=== PATIENT | female | born 1985 | race Caucasian/White ===

== ENCOUNTER 2016-08-17 21:10 | Emergency (ER) | payer OTHER ==
[2016-08-17 22:10] LABS: HEMOGLOBIN 14.7 gm/dl (12.3-15.3); RED BLOOD COUNT 4.97 M/UL (4.00-5.10); WHITE BLOOD COUNT 11.9 K/UL (4.5-11.0)
[2016-08-17 22:31] LABS: BUN/CREATININE RATIO 13 (0-10)
== END 2016-08-18 02:45 | disposition home or self-care (01) ==
LOC: ER1 21:10
PROVIDERS: Emergency Medicine
DX: R07.89 Other chest pain (principal); F11.23 Opioid dependence with withdrawal; N39.0 Urinary tract infection, site not specified; F17.210 Nicotine dependence, cigarettes, uncomplicated
CPT/HCPCS: 36415; 71020; 80053; 81001; 82550; 82553; 83605; 83690; 83874; 84484; 84703; 85025; 85379; 85610; 85730; 87040; 87086; 93005; 96374; 99285; J0696; J2405; J7050

== ENCOUNTER 2016-08-31 18:45 | Emergency (ER) | payer OTHER | END 2016-08-31 20:30 | disposition home or self-care (01) | LOC: ER1 18:45 | DX: S83.511A Sprain of anterior cruciate ligament of right knee, initial encounter (principal); F17.210 Nicotine dependence, cigarettes, uncomplicated; W51.XXXA Accidental striking against or bumped into by another person, initial encounter | CPT/HCPCS: 73564; 99283 ==

== ENCOUNTER 2020-08-27 19:08 | Emergency (ER) | payer OTHER ==
[2020-08-27 19:32] LABS: HEMOGLOBIN 16.1 gm/dl (12.3-15.3); RED BLOOD COUNT 5.21 M/UL (4.00-5.10); WHITE BLOOD COUNT 9.6 K/UL (4.5-11.0)
[2020-08-27 20:18] LABS: BUN/CREATININE RATIO 17 (0-10)
== END 2020-08-27 21:05 | disposition home or self-care (01) ==
LOC: ER1 19:08
PROVIDERS: Family Medicine
DX: F11.129 Opioid abuse with intoxication, unspecified (principal); F17.200 Nicotine dependence, unspecified, uncomplicated
CPT/HCPCS: 71045; 80053; 82550; 82553; 83874; 84484; 84703; 85025; 93005; 99284; G0480

== ENCOUNTER 2020-11-21 20:15 | Emergency (ER) | payer OTHER | END 2020-11-22 01:40 | disposition home or self-care (01) | LOC: ER1 20:15 | DX: Z04.1 Encounter for examination and observation following transport accident (principal); T50.901A Poisoning by unspecified drugs, medicaments and biological substances, accidental (unintentional), initial encounter; F17.200 Nicotine dependence, unspecified, uncomplicated | CPT/HCPCS: 71045; 99284 ==